=== PATIENT | female | born 1995 | race Two or more races ===

== ENCOUNTER → 2019-11-20 | Outpatient (CLI) | payer OTHER | END | disposition home or self-care (01) | LOC: LAB 09:35 | PROVIDERS: ATTEND Preventive Medicine Preventive Medicine/Occupational Environmental Medicine | DX: Z02.1 Encounter for pre-employment examination (principal) | CPT/HCPCS: 36415; 86706; 86735; 86762; 86765; 86787 ==

== ENCOUNTER → 2020-10-07 | Outpatient (CLI) | payer OTHER | END | disposition home or self-care (01) | LOC: LAB 09:24 | PROVIDERS: ATTEND Nurse Practitioner Family | DX: Z20.9 Contact with and (suspected) exposure to unspecified communicable disease (principal) | CPT/HCPCS: 86735; 86762; 86765 ==

== ENCOUNTER 2021-06-23 17:28 | Emergency (ER) | payer SELFPAY ==
[~2021-06-23] VITALS: Ht 157.5 cm; Wt 59.0 kg
[2021-06-23 19:17] LABS: Hepatitis B Surface Antibody Positive
[2021-06-23 20:28] VITALS: BP 115/74
[2021-06-23 20:31] LABS: Hepatitis B Surface Antigen Negative (Negative)
== END 2021-06-23 19:52 | disposition home or self-care (01) ==
LOC: EEVIPCON 17:28 → ER 17:28
DX: S61.002A Unspecified open wound of left thumb without damage to nail, initial encounter (principal); W27.3XXA Contact with needle (sewing), initial encounter; Y93.89 Activity, other specified; Y92.89 Other specified places as the place of occurrence of the external cause; Y99.8 Other external cause status
CPT/HCPCS: 36415; 86703; 86706; 86803; 87340

== ENCOUNTER → 2021-12-23 | Outpatient (CLI) | payer BC | END | disposition home or self-care (01) | LOC: LAB 09:02 | PROVIDERS: ATTEND Obstetrics & Gynecology Obstetrics | DX: C53.9 Malignant neoplasm of cervix uteri, unspecified (principal); J44.9 Chronic obstructive pulmonary disease, unspecified; N32.89 Other specified disorders of bladder ==

== ENCOUNTER → 2022-01-19 | Day surgery (SDC) | payer BC, MEDICAID ==
[2022-01-15 12:27] LABS: Basophils # (auto) 0.1 10 ^3/uL (0-0.2); Basophils % (auto) 0.9 % (0.0-2.0); Eosinophils # (auto) 0.2 10 ^3/uL (0-0.8); Eosinophils % (auto) 2.2 % (0.0-7.0); Hematocrit 42.2 % (36.0-46.0); Hemoglobin 14.1 g/dL (12.2-16.2); Lymphocytes # (auto) 3.1 10 ^3/uL (0.4-5.4); Lymphocytes % (auto) 27.3 % (10.0-50.0); Mean Corpuscular Hemoglobin 30.1 pg (28.0-32.0); Mean Corpuscular Hgb Conc. 33.3 g/dL (32.0-36.0); Mean Corpuscular Volume 90.3 fL (80.0-100.0); Monocytes # (auto) 0.5 10 ^3/uL (0-1.3); Monocytes % (auto) 4.3 % (0.0-12.0); Neutrophils # (auto) 7.3 10 ^3/uL (1.6-8.6); Neutrophils % (auto) 65.3 % (37.0-80.0); Red Blood Cells 4.67 10^6/uL (4.0-5.20); Red Cell Distribution Width 13.5 % (11.8-14.3); White Blood Cell 11.2 10^3/uL (4.4-10.8)
[2022-01-15 12:34] LABS: Urine Bacteria FEW /hpf (None Seen); Urine Blood Negative /uL (Negative); Urine Specific Gravity 1.004 (1.001-1.035); Urine WBC 1 /hpf (0 - 5)
[2022-01-15 12:46] LABS: INR 0.99 (0.9-1.15); Partial Thromboplastin Time 27.6 sec (23.6-33.0)
[2022-01-15 12:58] LABS: Albumin 3.5 g/dL (3.4-5.0); Calcium 8.9 mg/dL (8.5-10.1); Potassium 4.3 mmol/L (3.5-5.1)
[2022-01-15 13:01] LABS: BUN/Creatinine Ratio 13.8; Bilirubin, Total 0.3 mg/dL (0.2-1.0); Total Protein 7.3 g/dL (6.4-8.2)
[~2022-01-19] VITALS: Ht 165.1 cm; Wt 76.2 kg
[~2022-01-19] MED LIST: FERRIC SUBSULFATE TOPICAL SOLN 30 ML BTL ONE; HYDR50TA69 PO; IODINE STRONG 5% SOLN 14ML ONE; LIDOCAINE 1% (LOCAL ANESTH.) PF 5ml SDV ONE; LIDOCAINE W/ EPINEPHRINE 2% INJ 20ML VIAL ONE; SUMA50TA2 PO
[2022-01-19 08:08] VITALS: BP 106/63
== END | disposition home or self-care (01) ==
LOC: SUR 06:13
PROVIDERS: ATTEND Obstetrics & Gynecology Obstetrics
DX: D06.9 Carcinoma in situ of cervix, unspecified (principal); G43.909 Migraine, unspecified, not intractable, without status migrainosus; N85.8 Other specified noninflammatory disorders of uterus; Z88.8 Allergy status to other drugs, medicaments and biological substances; Z79.899 Other long term (current) drug therapy; Z20.822 Contact with and (suspected) exposure to COVID-19
CPT/HCPCS: 36415; 57461; 80053; 81001; 81025; 84702; 85025; 85610; 85730; 86850; 86900; 86901; 88305; U0003

== ENCOUNTER → 2025-06-08 | Outpatient (CLI) | payer BC, MEDICAID ==
[~2025-06-08] MED LIST changes: -FERRIC SUBSULFATE TOPICAL SOLN 30 ML BTL ONE; -IODINE STRONG 5% SOLN 14ML ONE; -LIDOCAINE 1% (LOCAL ANESTH.) PF 5ml SDV ONE; -LIDOCAINE W/ EPINEPHRINE 2% INJ 20ML VIAL ONE
[2025-06-08 08:36] LABS: Hematocrit 43.5 % (36.0-46.0); Hemoglobin 15.1 g/dL (12.2-16.2); Mean Corpuscular Hemoglobin 31.5 pg (28.0-32.0); Mean Corpuscular Volume 91.0 fL (80.0-100.0); Nucleated Red Blood Cells % 0.0 %
[2025-06-08 08:52] LABS: Alanine Aminotransferase 15 U/L (7-40); Alkaline Phosphatase 88 U/L (46-116); Anion Gap 6 (5-15); BUN/Creatinine Ratio 10.3 (10.0-20.0); Blood Urea Nitrogen 10 mg/dL (9-23); Calcium 9.2 mg/dL (8.7-10.4); Carbon Dioxide 26 mmol/L (20-31); Chloride 106 mmol/L (98-107); Glucose 89 mg/dL (74-106); Potassium 4.2 mmol/L (3.5-5.1); Sodium 138 mmol/L (136-145); Total Protein 7.4 g/dL (5.7-8.2); Triglycerides 71 mg/dL (< 150)
[2025-06-08 08:53] LABS: Albumin 4.3 g/dL (3.2-4.8); Bilirubin, Total 0.8 mg/dL (0.2-1.0); Cholesterol 145 mg/dL (< 200)
[2025-06-08 08:56] LABS: HDL Cholesterol 63 mg/dL (40-59)
== END | disposition home or self-care (01) ==
LOC: LAB 07:47
PROVIDERS: ATTEND Nurse Practitioner Family
DX: T78.40XD Allergy, unspecified, subsequent encounter (principal); I10 Essential (primary) hypertension; Z00.01 Encounter for general adult medical examination with abnormal findings; X58.XXXD Exposure to other specified factors, subsequent encounter
CPT/HCPCS: 36415; 80053; 80061; 82785; 84443; 85025; 86003

== ENCOUNTER 2025-07-02 13:43 | Outpatient (CLI) | payer BC, MEDICAID ==
[2025-07-04 02:07] LABS: Chlamydia Trachomatis, NAA Negative (Negative); Neisseria gonorrhoeae, NAA Negative (Negative)
== END 2025-07-02 17:00 | disposition home or self-care (01) ==
LOC: LAB 13:43
DX: Z11.3 Encounter for screening for infections with a predominantly sexual mode of transmission (principal)
CPT/HCPCS: 36415; 86703; 86780; 87902